=== PATIENT | female | born 1925 | race Caucasian/White ===

== ENCOUNTER 2017-06-12 13:40 | Emergency (ER) | payer MEDICARE, BC ==
--- NOTE | 2017-06-12 14:34 | RAD ---
LEFT KNEE FOUR VIEWS: History: Fall, left knee pain. FINDINGS/IMPRESSION: Degenerative changes are present. No acute fracture or dislocation is identified. POS: [facility]
--- NOTE | 2017-06-12 14:37 | RAD ---
LEFT HAND THREE VIEWS: History: Fall, left hand pain. FINDINGS/IMPRESSION: Degenerative changes are present. No acute fracture or dislocation is identified. POS: [facility]
== END 2017-06-12 14:56 | disposition home or self-care (01) ==
LOC: ERS 13:40
DX: S63.92XA Sprain of unspecified part of left wrist and hand, initial encounter (principal); S83.92XA Sprain of unspecified site of left knee, initial encounter; I10 Essential (primary) hypertension; E03.9 Hypothyroidism, unspecified; K21.9 Gastro-esophageal reflux disease without esophagitis; F41.9 Anxiety disorder, unspecified; W01.0XXA Fall on same level from slipping, tripping and stumbling without subsequent striking against object, initial encounter